=== PATIENT | male | born 1950 | race Caucasian/White ===

== ENCOUNTER 2019-03-24 07:21 | Day surgery (SDC) | payer BC, MEDICARE ==
[2019-03-20 14:52] LABS: BASOPHILS % (AUTO) 0.6 % (0.0-5.0); EOSINOPHILS % (AUTO) 1.9 % (0.0-8.0); HEMATOCRIT 38.9 % (42-54); LYMPHOCYTES % (AUTO) 24.5 % (21.0-51.0); MEAN CORPUSCULAR HEMOGLOBIN 29.1 pg (27.0-33.0); MEAN CORPUSCULAR HGB CONC 32.6 g/dL (32.0-36.0); MONOCYTES % (AUTO) 9.7 % (3.0-13.0); PLATELET COUNT (AUTO) 224 K/uL (130-400); RED BLOOD CELL COUNT(AUTO) 4.37 MIL/uL (4.50-6.20); RED CELL DISTRIBUTION WIDTH 14.3 % (11.0-15.5); WHITE BLOOD COUNT (AUTO) 6.8 K/uL (4.8-10.8)
[2019-03-20 14:59] LABS: POTASSIUM 4.2 mmol/L (3.5-5.1)
[2019-03-20 16:14] VITALS: BP 125/78
--- NOTE | 2019-03-20 16:52 | NUR ---
DR. BHAT NOTIFED OF ABNORMAL EKG, PT SEES DR. QUEZADA WILL REQUEST LAST EKG. SENT EKG TO OFFICE INCASE PT REQUIRES CARDIAC CLEARANCE.
[2019-03-24] VITALS (17 sets, daily range): BP systolic 104–148; BP diastolic 57–85
[~2019-03-24] VITALS: Ht 182.9 cm; Wt 108.0 kg
[~2019-03-24 07:21] MED LIST: ALLO300T2 PO; INDO50CA98 PO; LISI10TA7 PO; METO-391 PO; SIMV10TA97 PO; TAMS-1 PO
[2019-03-24] MEDS ORDERED: LACTATED RINGERS 1000ML 1,000 ML IV ONE (08:04)
--- NOTE | 2019-03-24 08:10 | NUR ---
CONSULT: [facility] CRNA NOTIFIED OF PATIENT WITH AN IRREGULAR HEARTBEAT. ALSO, MADE AWARE OF NOTE SAYING TO ASK ANESTHESIOLOGIST IF CARDIAC CLEARANCE IS NEEDED. REVIEWING EKG DONE DAY OF PRE-OP AND EKG OBTAINED FROM DR. QUEZADA'S OFFICE. INTERVIEWING PATIENT. OK TO PROCEED WITH SURGERY.
[2019-03-24] MEDS ORDERED: ROCURONIUM 10MG/1ML SYR 10 MG/ML ML ONE ×2 (08:12→08:54)
[2019-03-24] MEDS ORDERED: LIDOCAINE PF 2% 5ML ABBOJECT ONE (08:12)
[2019-03-24] MEDS ORDERED: MIDAZOLAM HCL 1 MG/ML 2ML VIAL ONE (08:12)
[2019-03-24] MEDS ORDERED: PROPOFOL 10 MG/ML 20ML VIAL IV ONE (08:12)
[2019-03-24] MEDS ORDERED: FENTANYL CITRATE PF 50 MCG/1 ML 2ML VIAL ONE ×2 (08:12→09:21)
--- NOTE | 2019-03-24 08:15 | NUR ---
POTENTIAL FOR INFECTION: SHAVED ENTIRE ABDOMEN WITH BILATERAL GROIN AREA PER KRUPA PIÑA.
[2019-03-24] MEDS ORDERED: EPHEDRINE SULFATE 50 MG/ML AMPULE ONE (08:44)
[2019-03-24] MEDS ORDERED: BUPIVACAINE/PF 0.25% 30ML VIAL IJ ONE (09:07)
[2019-03-24] MEDS ORDERED: GLYCOPYRROLATE 1 MG/5 ML SYRINGE ONE (09:27)
[2019-03-24] MEDS ORDERED: NEOSTIGMINE 5MG/5ML SYR IV ONE (09:27)
[2019-03-24] MEDS ORDERED: LISI-613 PO (09:28)
[2019-03-24] MEDS ORDERED: AMLO10TA7 PO (09:28)
[2019-03-24] MEDS ORDERED: ONDANSETRON HCL 4 MG/2 ML VIAL ONE (09:42)
== END 2019-03-24 11:59 | disposition home or self-care (01) ==
LOC: DAH 07:21
PROVIDERS: ATTEND Surgery
DX: K40.90 Unilateral inguinal hernia, without obstruction or gangrene, not specified as recurrent (principal); K42.9 Umbilical hernia without obstruction or gangrene; I10 Essential (primary) hypertension; E78.5 Hyperlipidemia, unspecified; M10.9 Gout, unspecified; K21.9 Gastro-esophageal reflux disease without esophagitis; E66.9 Obesity, unspecified; Z68.31 Body mass index [BMI] 31.0-31.9, adult; Z79.899 Other long term (current) drug therapy; Z72.89 Other problems related to lifestyle; Z87.891 Personal history of nicotine dependence; Z98.890 Other specified postprocedural states; Z82.49 Family history of ischemic heart disease and other diseases of the circulatory system
CPT/HCPCS: 36415; 80048; 85025; 93005; C1781; J2001; J2250; J2405; J2704; J2710; J3010; J3490; J7120